=== PATIENT | female | born 1985 | race Caucasian/White ===

== ENCOUNTER 2017-09-19 10:35 | Day surgery (SDC) | payer OTHER ==
[2017-09-11 12:22] VITALS: BMI 30.9
[2017-09-19] MEDS ORDERED: MIDAZOLAM HCL 2 MG/2 ML SINGLE DOSE VIAL ONE ×5 (11:32→15:15)
[2017-09-19] MEDS ORDERED: ROPIVACAINE HCL 0.5% 30ML VIAL ONE (11:38)
[2017-09-19] MEDS ORDERED: DEXAMETHASONE SOD PHOSPHATE/PF 10 MG/ML SDV ONE (11:38)
[2017-09-19] MEDS ORDERED: ONDANSETRON 4 MG/2 ML VIAL IVPUSH PRN (12:24)
[2017-09-19] MEDS ORDERED: oxyCODONE HCL 5 MG TABLET PO PRN ×3 (12:24→20:14)
[2017-09-19] MEDS ORDERED: LACTATED RINGERS SOLUTION 1,000 ML IV SCH (12:30)
[2017-09-19] MEDS ORDERED: PROPOFOL 20 ML ONE (14:45)
[2017-09-19] MEDS ORDERED: HYDROmorphone HCL/PF 1 MG/ML VIAL (FOR PYXIS CHARGING ONLY) ONE (14:59)
[2017-09-19 20:38] LABS: ARTERIAL BLD GAS O2 SATURATION 95.7 % (90-98.9); ARTERIAL BLOOD GAS PCO2 35.4 mmHg (35-45); ARTERIAL BLOOD GAS pH 7.43 (7.35-7.45)
[2017-09-20] MEDS: ACETAMINOPHEN 325 MG TABLET (FP) PO SCH ×3 (06:00→09:26)
[2017-09-20 09:12] VITALS: BP 129/70; PULSE 95; TEMP 98.1
--- NOTE | 2017-09-20 10:03 | CONSULT ---
Consultation: REQUESTING PROVIDER: Dr Jackson CONSULT REQUEST: We have been asked to medically evaluate this patient for hypoxia. HISTORY OF PRESENT ILLNESS: Patient is a 31 y/o female with no significant history. Patient is s/p left 5th digit, proximal interphalangeal joint fracture dislocation with open reduction, POD #1, Dr Hughes. Patient reports feeling well, ambulatory at bedside , denies any chest pain or shortness of breath, reports parasthesia is resolved to the left upper extremity. REVIEW OF SYSTEMS: CONSTITUTIONAL: Absent: fever, chills, diaphoresis, generalized weakness, malaise, loss of appetite, weight change HEENT: Absent: rhinorrhea, nasal congestion, throat pain, throat swelling, difficulty swallowing, mouth swelling, ear pain, eye pain, visual changes CARDIOVASCULAR: Absent: chest pain, syncope, palpitations, irregular heart rate, lightheadedness , peripheral edema RESPIRATORY: Absent: cough, shortness of breath, dyspnea with exertion, orthopnea, wheezing, stridor, hemoptysis GASTROINTESTINAL: Absent: abdominal pain, abdominal distension, nausea, vomiting, diarrhea, constipation, melena, hematochezia GENITOURINARY: Absent: dysuria, frequency, urgency, hesitancy, hematuria, flank pain, genital pain MUSCULOSKELETAL: Present: left upper extremity, pain to the left 5th digit. Absent: myalgia, arthralgia, joint swelling, back pain, neck pain SKIN: Absent: rash, itching, pallor HEMATOLOGIC/IMMUNOLOGIC: Absent: easy bleeding, easy bruising, lymphadenopathy, frequent infections ENDOCRINE: Absent: unexplained weight gain, unexplained weight loss, heat intolerance, cold intolerance NEUROLOGIC: Absent: headache, focal weakness or paresthesias, dizziness, unsteady gait, seizure, mental status changes, bladder or bowel incontinence PSYCHIATRIC: Absent: anxiety, depression, suicidal or homicidal ideation, hallucinations. PHYSICAL EXAMINATION Vital Signs - 24 hr 09/19/17 09/19/17 09/19/17 11:00 15:10 15:15 Temperature 98.2 F 97.8 F Pulse Rate 90 119 H 127 H Respiratory 20 18 10 L Rate Blood Pressure 135/84 103/72 127/78 O2 Sat by Pulse 96 94 L 93 L Oximetry (%) 09/19/17 09/19/17 09/19/17 15:20 15:25 15:40 Temperature Pulse Rate 132 H 129 H 125 H Respiratory 10 L 11 L 11 L Rate Blood Pressure 131/72 142/84 120/68 O2 Sat by Pulse 93 L 93 L 93 L Oximetry (%) 09/19/17 09/19/17 09/19/17 15:55 16:10 16:25 Temperature 97.8 F Pulse Rate 118 H 115 H 114 H Respiratory 17 12 15 Rate Blood Pressure 113/74 115/65 111/59 O2 Sat by Pulse 94 L 93 L 95 Oximetry (%) 09/19/17 09/19/17 09/19/17 16:40 16:55 17:10 Temperature 97.8 F Pulse Rate 114 H 113 H 101 H Respiratory 16 12 10 L Rate Blood Pressure 105/60 120/76 123/73 O2 Sat by Pulse 96 93 L 92 L Oximetry (%) 09/19/17 09/19/17 09/19/17 17:25 17:40 18:00 Temperature Pulse Rate 111 H 117 H 125 H Respiratory 17 18 20 Rate Blood Pressure 125/62 133/68 119/78 O2 Sat by Pulse 91 L 93 L 93 L Oximetry (%) 09/19/17 09/19/17 09/19/17 18:30 18:45 19:15 Temperature 99 F 97.7 F Pulse Rate 118 H 123 H 123 H Respiratory 18 17 16 Rate Blood Pressure 123/80 150/82 O2 Sat by Pulse 92 L 91 L 86 L Oximetry (%) 09/19/17 09/19/17 09/19/17 19:30 20:00 22:05 Temperature 98.7 F Pulse Rate 119 H 110 H 119 H Respiratory 19 19 18 Rate Blood Pressure 132/74 O2 Sat by Pulse 89 L 95 Oximetry (%) 09/20/17 09/20/17 09/20/17 06:00 08:50 09:12 Temperature 98.4 F 98.1 F Pulse Rate 93 H 95 H Respiratory 18 18 Rate Blood Pressure 131/72 129/70 O2 Sat by Pulse 97 Oximetry (%) 09/20/17 09:28 Temperature Pulse Rate Respiratory 18 Rate Blood Pressure O2 Sat by Pulse 97 Oximetry (%) GENERAL: Awake, alert, and fully oriented, in no acute distress. HEAD: Normal with no signs of trauma. EYES: Pupils equal, round and reactive to light, extraocular movements intact, sclera anicteric, conjunctiva clear. No lid lag. EARS, NOSE, THROAT: Ears normal, nares patent, oropharynx clear without exudates. Moist mucous membranes. NECK: Normal range of motion, supple without lymphadenopathy, JVD, or masses. LUNGS: Breath sounds equal, clear to auscultation bilaterally. No wheezes, and no crackles. No accessory muscle use. HEART: Regular rate and rhythm, normal S1 and S2 without murmur, rub or gallop. ABDOMEN: Soft, nontender, not distended, normoactive bowel sounds, no guarding, no rebound, no masses. No hepatomegaly or splenomegaly. MUSCULOSKELETAL: Normal range of motion at all joints. No bony deformities or tenderness. No CVA tenderness. UPPER EXTREMITIES: less than 3 second capillary refill, ulnar short arm splint in place, 2+ pulses, warm, well-perfused. No cyanosis. No clubbing. No peripheral edema. LOWER EXTREMITIES: 2+ pulses, warm, well-perfused. No calf tenderness. No peripheral edema. NEUROLOGICAL: Cranial nerves II-XII intact. Normal speech. Normal gait. PSYCHIATRIC: Cooperative. Good eye contact. Appropriate mood and affect. SKIN: Warm, dry, normal turgor, no rashes or lesions noted. Laboratory Results - last 24 hr 09/19/17 09/19/17 10:45 Unknown Anticoagulation Therapy No Result Required. Puncture Site No Result Required. ABG pH 7.43 ABG pCO2 at Pt Temp 35.4 ABG pO2 at Pt Temp 71.0 L ABG HCO3 23.2 ABG O2 Sat (Measured) 95.7 ABG O2 Content 19.3 ABG Base Excess 0.0 Rudy Test No Result Required. O2 Delivery Device No Result Required. Oxygen Flow Rate No Result Required. Vent Mode No Result Required. Vent Rate No Result Required. Mechanical Rate No Result Required. Pressure Support Vent No Result Required. Urine HCG, Qual Negative Active Medications Generic Name Dose Route Start Last Admin Trade Name Freq PRN Reason Stop Dose Admin Acetaminophen 650 mg 09/19/17 20:15 09/20/17 09:26 Tylenol - PO 09/22/17 20:14 650 mg Q6H NIYAH Administration Fentanyl 50 mcg 09/19/17 12:24 Sublimaze Injection - IVPUSH [id number] PRN PAIN-PACU ORDER X 4 DOSES ONLY Lactated Ringer's 1,000 mls @ 125 mls/hr 09/19/17 12:30 Lactated Ringers Solution IV ASDIR NIYAH Ondansetron HCl 4 mg 09/19/17 12:24 Zofran Injection IVPUSH Q6H PRN NAUSEA AND/OR VOMITING Oxycodone HCl 5 mg 09/19/17 20:14 09/20/17 06:24 Roxicodone - PO 5 mg Q3H PRN Administration PAIN LEVEL 1-5 Oxycodone HCl 10 mg 09/19/17 20:14 09/20/17 09:27 Roxicodone - PO 10 mg Q3H PRN Administration PAIN LEVEL 6-10 ASSESSMENT/PLAN: 1) MS s/p left 5th digit, proximal interphalangeal joint fracture dislocation with open reduction, POD #1 (Saul) - spo2 98 after flat surface walking - prn pain medication - Dr Hughes consulted and following Dispo: We will continue to follow the patient. Thank you for this consultative opportunity. Visit type - Emergency Visit Emergency Visit: No - New Patient This patient is new to me today: Yes Date on this admission: 09/20/17 - Critical Care Critical Care patient: No
--- NOTE | 2017-09-20 10:41 | PN ---
Progress Note (short form) - Note Progress Note: 31F POD1 s/p ORIF left PIP fracture under general anesthesia and peripheral nerve block. Post operatively patient noted to be hypoxemic in the absence of abnormal auscultation or subjective shortness of breath. Pt was kept overnight. After observation, monitoring, blood gas and CXR, pt is now greatly improved from presumed negative pressure pulmonary edema with no therapeutic intervention. O2 Saturation on room air before and after ambulation is unchanged in the high 90s. Nerve block is beginning to wear off. Pt will be discharged today on percocet. Pt informed to continue incentive spirometer use.
--- NOTE | 2017-09-21 08:34 | OP ---
DATE OF OPERATION: 09/19/2017 PREOPERATIVE DIAGNOSIS: Left small finger proximal interphalangeal joint subacute fracture-dislocation. POSTOPERATIVE DIAGNOSIS: Left small finger proximal interphalangeal joint subacute fracture-dislocation. OPERATIVE PROCEDURES: 1. Left small finger osteotomy and repair of middle phalanx intraarticular fracture with phuong-hamate autograft/arthroplasty. 2. Open reduction and internal fixation of the left small finger proximal interphalangeal dislocation. SURGEON: Mariano Foster MD REGULATOR MECHANIC: ANGIE Oreilly ANESTHESIA: General and regional. COMPLICATIONS: Negative pressure pulmonary edema treated by Anesthesia postoperatively. ESTIMATED BLOOD LOSS: Minimal. INDICATION FOR PROCEDURE: The patient is a 31-year-old female with the above finding indicated for operative treatment. Risks, benefits, alternatives were discussed with the patient at length. Proper informed consent was obtained. PROCEDURE: After proper identification of patient, correct operative site, patient was brought to the operating room and placed supine on the operating table, all bony prominences were padded. Regional and general anesthesia were given. Left upper extremity was prepped and draped in the usual sterile fashion. A well-padded tourniquet was placed after the sterile prep. Esmarch bandage used to exsanguinate left upper extremity. Tourniquet was inflated to 250 mmHg. A Cary incision was made over the volar aspect of the small finger PIP joint. Incision was taken sharply through skin, with blunt and sharp dissection through subcutaneous tissues, carefully protecting the neurovascular structures. A3 dayan was elevated off the flexor tendons. The flexor tendons were retracted and the volar plate was divided distally and retracted proximally. The collateral ligaments were resected and the joint was shotgunned. Approximately 60% to 70% of the articular surface was destroyed, and osteotomy was performed to remove the volar fragments that were not reconstructible. Dorsal 30% of the articular surface remained intact with only mild chondromalacia. Proximal phalanx head was with minimal chondral damage. The middle phalanx bed was then prepared by making an oblique cut using oscillating saw to prepare for the graft. A second incision was then made dorsally over the ulnar carpometacarpal joint. Incision was taken sharply through skin with blunt and sharp dissection through subcutaneous tissues. The hamate-metacarpal articulation was noted, and graft was excised using an oscillating saw. The graft was then fashioned to appropriately fit in the previously made bed at the middle phalanx, and once it was properly fashioned it was secured with 2 Synthes modular hand screws; one was a 1.0 screw and one was a 1.5 screw. This provided secure stable fixation of the graft. The joint was then reduced and found to have smooth full range of motion. The volar plate was then repaired. The A3 dayan was interposed underneath the tendons, and the skin was repaired using 5-0 fast-absorbing plain gut. Dorsal incision was also repaired using 4-0 Vicryl and nylon suture. Sterile dressings and a splint were placed. Patient was reversed from anesthesia and to recovery room in stable condition. She tolerated the procedure well. Patrick Branch, the ophthalmic medical assistant, was integral throughout the procedure. Procedure could not have been performed without a skilled operative ophthalmic medical assistant. MARIANO FOSTER M.D. [id number]
== END 2017-09-20 09:40 | disposition home or self-care (01) ==
LOC: FASU 10:35 → FM/S 21:33 → FASU 09-20 09:40
PROVIDERS: ATTEND Orthopaedic Surgery Hand Surgery
PROC: 0PBV0ZZ Excision of Left Finger Phalanx, Open Approach (ICD-10-PCS; 2017-09-19)
PROC: 0PSV04Z Reposition Left Finger Phalanx with Internal Fixation Device, Open Approach (ICD-10-PCS; principal; 2017-09-19 12:38)
DX: S62.627A Displaced fracture of middle phalanx of left little finger, initial encounter for closed fracture (principal); X58.XXXA Exposure to other specified factors, initial encounter; Y93.9 Activity, unspecified; Y92.9 Unspecified place or not applicable
CPT/HCPCS: 36600; 71045-TC-FY; 73130-TC-LR-FY; 82803; 84703; 94010; 94760